=== PATIENT | female | born 1945 | race Caucasian/White ===

== ENCOUNTER 2022-01-09 08:49 | Day surgery (SDC) | payer MEDICARE ==
[2022-01-01 15:21] LABS: BASOPHILS # (AUTO) 0.1 X10'3 (0-0.2); BASOPHILS % (AUTO) 0.8 % (0-1); EOSINOPHILS # (AUTO) 0.3 X10'3 (0-0.9); EOSINOPHILS % (AUTO) 3.8 % (0-6); LYMPHOCYTES # (AUTO) 2.6 X10'3 (1.1-4.8); LYMPHOCYTES % (AUTO) 36.1 % (21-51); MEAN CORPUSCULAR HEMOGLOBIN 31.1 PG (27.0-31.0); MEAN CORPUSCULAR HGB CONC 32.7 g/dL (33.0-36.5); MEAN CORPUSCULAR VOLUME 95.2 FL (78-98); MEAN PLATELET VOLUME 6.4 FL (7.4-10.4); MONOCYTES # (AUTO) 0.6 X10'3 (0-0.9); MONOCYTES % (AUTO) 8.7 % (2-12); NEUTROPHILS # (AUTO) 3.7 X10'3 (1.8-7.7); NEUTROPHILS % (AUTO) 50.6 % (42-75); PRE OP HEMATOCRIT 41.1 % (35.0-45.0); PRE OP HEMOGLOBIN 13.4 g/dL (12.0-16.0); PRE OP PLATELET COUNT 263 X10'3 (140-440); RED BLOOD COUNT 4.32 X10'6 (4.20-5.60)
[2022-01-01 15:27] LABS: PRE OP PROTIME 26.1 SECONDS (9.0-12.0)
[2022-01-01 15:28] LABS: ALBUMIN 3.8 G/DL (3.4-5.0); ALBUMIN/GLOBULIN RATIO 1.1 (1.1-1.5); ALKALINE PHOSPHATASE 75 IU/L (46-116); BLOOD UREA NITROGEN 16 MG/DL (7-18); BUN/CREATININE RATIO 27.1 (6.6-38.0); CALCIUM 9.1 MG/DL (8.5-10.1); CHLORIDE 106 MMOL/L (99-107); CREATININE 0.59 MG/DL (0.40-0.90); PRE OP ALT 35 U/L (30-65); PRE OP ANION GAP 12 (8-16); PRE OP AST 21 U/L (10-37); PRE OP BILIRUB, TOTAL 0.6 MG/DL (0.0-1.0); PRE OP GLUCOSE 105 MG/DL (70-104); PRE OP POTASSIUM 4.1 MMOL/L (3.4-5.1); PRE OP SODIUM 145 MMOL/L (135-145); TOTAL PROTEIN 7.2 G/DL (6.4-8.2); eGFR > 90 ML/MIN
[2022-01-01 15:30] LABS: PRE OP INR 2.7 INR
[2022-01-09] VITALS (13 sets, daily range): BP systolic 130–148; BP diastolic 7–77
[~2022-01-09] VITALS: Ht 165.1 cm; Wt 70.3 kg
[~2022-01-09 08:49] MED LIST: ACET-1025 PO; ACET-2971 PO; AMLO5TAB16 PO; ATOR20TA PO; BUDE0.5A11 IH; CALC600T35 PO; DOCUMENT DATE & TIME OF BETA-BLOCKER PO ONE; FLUT16SP2 BOTHNARES; FOLI1TAB51 PO; MULT-1085 PO; PRED10TA PO; WARF-65 PO; cocaine 4% topical solution 4ml bottle ONE; diazepam 5mg tablet PO PRN; famotidine 20mg tablet PO ONE; oxymetazoline 15 ML nasal spray NS SCH; ringers solution, lacted 1,000 ML IV SCH
[2022-01-09] MEDS ORDERED: meperidine/PF 25mg/ml syringe IV PRN ×3 (09:00)
[2022-01-09] MEDS ORDERED: morphine 4 MG/ML inj SYRINge IV PRN (09:00)
[2022-01-09] MEDS ORDERED: ringers solution, lacted 1,000 ML IV SCH (09:00)
[2022-01-09] MEDS ORDERED: proCHLORperazine 10 MG/2 ml inj IV PRN (09:00)
[2022-01-09] MEDS ORDERED: ondansetron/PF 4mg/2ml inj IV PRN (09:00)
[2022-01-09] MEDS ORDERED: morphine 2 MG/ML inj. syringe IV PRN (09:00)
[2022-01-09] MEDS ORDERED: SOTA80TA73 PO (10:41)
[2022-01-09 11:13] LABS: APTT 27 SECONDS (22-32)
[2022-01-09] MEDS ORDERED: dexamethasone sod phosphate 10mg/ml inj ONE (12:45)
[2022-01-09] MEDS ORDERED: sevoflurane 250ml liquid IH ONE (12:45)
[2022-01-09] MEDS ORDERED: FENTANYL CITRATE/PF 50 MCG/1 ML VIAL ONE (12:58)
[2022-01-09] MEDS ORDERED: midazolam 1 mg/ML 2ml injection ONE (12:58)
[2022-01-09] MEDS ORDERED: LIDOcaine 1%/PF 5ML 10 MG/ML VIAL ONE (13:17)
[2022-01-09] MEDS ORDERED: ondansetron/PF 4mg/2ml inj ONE (13:17)
[2022-01-09] MEDS ORDERED: propofol inj 20 ML IV ONE (13:17)
[2022-01-09] MEDS ORDERED: oxymetazoline 15 ML nasal spray NS ONE (13:36)
[2022-01-09] MEDS ORDERED: mupirocin 2% ointment 22GM TP ONE (13:37)
--- NOTE | 2022-01-09 15:08 | NUR ---
Received from OR via [facility] by Anesthesiologist KARLENE and report given by Anesthesiolgist. PATIENT WITH 20G PIV IN RIGHT UE RUNNING LR AT 100. DENIES PAIN AT THIS TIME. NASAL PACKING BILATERALLY. 10L MASK ON WITH 100% SATURATIONS. VSS. Addendum: 01/09/22 at 1516 by Ryan Louie RN, RN Amended: Links added.
[2022-01-09] MEDS ORDERED: salt irrigation nasal spray 45 ML SPRAY NS PRN (15:31)
[2022-01-09] MEDS ORDERED: mupirocin 2% nasal ointment 1gm UD NS ONE (16:25)
[2022-01-09] MEDS ORDERED: mupirocin 2% ointment 22GM ONE (16:59)
--- NOTE | 2022-01-09 17:08 | NUR ---
ALL DISCHARGE CRITERIA HAS BEEN MET. VSS, PAIN AT A TOLERABLE LEVEL, VOIDING AND ABLE TO SAFELY AMBULATE AND TRANSFER SELF. IV TAKEN OUT WITHOUT ANY COMPLICATIONS. ALL DISCHARGE INSTRUCTIONS COVERED WITH PATIENT AND ALL QUESTIONS ANSWERED. PATIENT TAKEN OUT VIA WHEELCHAIR TO PERSONAL VEHICLE WHERE FAMILY/FRIEND DROVE PATIENT HOME. GAVE ALL DC INSTRUCTIONS TO DAUGHTER. ALL MEDS AND IRRIGATION KIT WELL EXTRA GAUZE FOR MOUSTACHE DRESSING. ALL QUESTIONS ANSWERED. 02 ON RA WITH 95% SATURATIONS PRIOR TO DC. Addendum: 01/09/22 at 1725 by Ryan Louie RN, RN Amended: Links added.
== END 2022-01-09 17:08 | disposition home or self-care (01) ==
LOC: PAS 08:49
PROVIDERS: ATTEND Otolaryngology
DX: J34.2 Deviated nasal septum (principal); J34.3 Hypertrophy of nasal turbinates; J32.8 Other chronic sinusitis; J33.8 Other polyp of sinus; I47.1 Supraventricular tachycardia; I10 Essential (primary) hypertension; E78.5 Hyperlipidemia, unspecified; Z72.89 Other problems related to lifestyle; Z79.899 Other long term (current) drug therapy; Z20.822 Contact with and (suspected) exposure to COVID-19; Z79.01 Long term (current) use of anticoagulants
CPT/HCPCS: 30140; 30520; 31240; 31253; 31259; 31267; 36415; 61782; 80053; 85025; 85576; 85610; 85730; 87635; A6402; C9250; C9803; J2250; J2405; J2704; J3010; J3490; J7030; J7050; J7120; U0003; U0005; Z7506; Z7508; Z7512; 88300; 88304; 88311; A4618; A7000; J1100

== ENCOUNTER 2023-06-28 23:47 | Emergency (ER) | payer MEDICARE ==
[~2023-06-28] VITALS: Ht 165.1 cm; Wt 61.4 kg
[~2023-06-28 23:47] MED LIST changes: -BUDE0.5A11 IH; -DOCUMENT DATE & TIME OF BETA-BLOCKER PO ONE; +SOTA80TA73 PO; -cocaine 4% topical solution 4ml bottle ONE; -diazepam 5mg tablet PO PRN; -famotidine 20mg tablet PO ONE; -oxymetazoline 15 ML nasal spray NS SCH; -ringers solution, lacted 1,000 ML IV SCH
[2023-06-28 23:50] VITALS: BP 137/72; PULSE 89; RESP 16; TEMP 99.1; O2SAT 96
[2023-06-29] MEDS ORDERED: metoclopramide 10mg tablet PO ONE (02:15)
[2023-06-29] MEDS ORDERED: hydrOXYzine 10 MG tablet PO ONE (02:15)
[2023-06-29 02:34] LABS: BASOPHILS % (AUTO) 0.5 % (0-1); EOSINOPHILS % (AUTO) 0.5 % (0-6); HEMATOCRIT 40.8 % (35.0-45.0); HEMOGLOBIN 13.7 g/dl (12.0-16.0); LYMPHOCYTES # (AUTO) 0.5 X10'3 (1.1-4.8); LYMPHOCYTES % (AUTO) 7.9 % (21-51); MEAN CORPUSCULAR HEMOGLOBIN 31.9 PG (27.0-31.0); MEAN CORPUSCULAR HGB CONC 33.5 g/dL (33.0-36.5); MEAN CORPUSCULAR VOLUME 95.1 FL (78-98); MEAN PLATELET VOLUME 6.5 FL (7.4-10.4); MONOCYTES # (AUTO) 0.5 X10'3 (0-0.9); MONOCYTES % (AUTO) 8.4 % (2-12); NEUTROPHILS # (AUTO) 4.9 X10'3 (1.8-7.7); NEUTROPHILS % (AUTO) 82.7 % (42-75); PLATELET COUNT 191 X10'3 (140-440); RED BLOOD COUNT 4.29 X10'6 (4.20-5.60); RED CELL DISTRIBUTION WIDTH 13.8 % (11.5-14.5)
[2023-06-29 02:47] LABS: PROTHROMBIN TIME 20.4 SECONDS (9.0-12.0)
[2023-06-29 02:52] LABS: ALANINE AMINOTRANSFERASE 38 U/L (12-78); ALBUMIN/GLOBULIN RATIO 1.2 (1.1-1.5); ALKALINE PHOSPHATASE 71 IU/L (46-116); ANION GAP 9 (8-16); ASPARTATE AMINO TRANSFERASE 31 U/L (10-37); BILIRUBIN,TOTAL 0.6 MG/DL (0.1-1.0); BLOOD UREA NITROGEN 16 MG/DL (7-18); BUN/CREATININE RATIO 24.6 (10.0-20.0); C-REACTIVE PROTEIN 1.21 MG/DL (0.0-0.5); CALCIUM 9.2 MG/DL (8.5-10.1); CHLORIDE 102 MMOL/L (99-107); CREATININE 0.65 MG/DL (0.40-0.90); GLUCOSE 168 MG/DL (70-104); POTASSIUM 3.8 MMOL/L (3.5-5.1); SODIUM 137 MMOL/L (135-145); TOTAL CARBON DIOXIDE 26.2 MMOL/L (24-32); TOTAL PROTEIN 7.4 G/DL (6.4-8.2); eCRCL 62 ML/MIN; eGFR 88 ML/MIN
[2023-06-29] MEDS ORDERED: NIRM1TAB5 PO (04:33)
[2023-06-29] MEDS ORDERED: METO-292 PO (04:36)
[2023-06-29] MEDS ORDERED: HYDROcodone/acetaminophen 10/325mg tab PO ONE (04:40)
== END 2023-06-29 05:01 | disposition home or self-care (01) ==
LOC: ER 23:47
DX: U07.1 COVID-19 (principal); R51.9 Headache, unspecified; E78.00 Pure hypercholesterolemia, unspecified; I10 Essential (primary) hypertension; Z88.8 Allergy status to other drugs, medicaments and biological substances; Z79.1 Long term (current) use of non-steroidal anti-inflammatories (NSAID); Z79.2 Long term (current) use of antibiotics; Z79.899 Other long term (current) drug therapy; Z98.890 Other specified postprocedural states
CPT/HCPCS: 36415; 70450; 80053; 85025; 85610; 86140; 87811; 99284